=== PATIENT | female | born 1955 | race Hispanic/Latino ===

== ENCOUNTER 2025-03-19 07:50 | Day surgery (SDC) | payer OTHER ==
[2025-03-19] VITALS (14 sets, daily range): BP systolic 76–163; BP diastolic 41–67; PULSE 46–65; RESP 14–18; TEMP 97–97.6
[~2025-03-19] VITALS: Ht 152.4 cm; Wt 59.9 kg
[~2025-03-19 07:50] MED LIST: BISO5TAB19 PO; CHOL100046 PO; CYAN250010 PO; LEVO75CA6 PO; LISI20TA24 PO
[2025-03-19] MEDS: 0.9%NACL 1000ML 1,000 ML IV ONE (08:26)
[2025-03-19] MEDS ORDERED: proPOFol 10 MG/ML 20ML VIAL IV ONE (09:05)
[2025-03-19] MEDS ORDERED: LIDOCAINE PF 100MG/5ML (2%) SYRINGE 5ML ONE (09:05)
[2025-03-19] MEDS: ePHEDrine SULFate 50 MG/ML AMPULE ONE (10:02)
== END 2025-03-19 10:50 | disposition home or self-care (01) ==
LOC: DAH 07:50 → ENDO 07:50
PROVIDERS: ATTEND Internal Medicine Gastroenterology
DX: R94.5 Abnormal results of liver function studies (principal); K73.9 Chronic hepatitis, unspecified; K74.60 Unspecified cirrhosis of liver; K83.8 Other specified diseases of biliary tract; R74.8 Abnormal levels of other serum enzymes; K76.0 Fatty (change of) liver, not elsewhere classified; R93.2 Abnormal findings on diagnostic imaging of liver and biliary tract; R93.422 Abnormal radiologic findings on diagnostic imaging of left kidney; R18.8 Other ascites; I10 Essential (primary) hypertension; E78.5 Hyperlipidemia, unspecified; E07.9 Disorder of thyroid, unspecified; D47.2 Monoclonal gammopathy; R01.1 Cardiac murmur, unspecified; M19.90 Unspecified osteoarthritis, unspecified site; Z79.899 Other long term (current) drug therapy; Z86.0100 Personal history of colon polyps, unspecified; Z90.710 Acquired absence of both cervix and uterus; Z90.49 Acquired absence of other specified parts of digestive tract
CPT/HCPCS: 43238; J2003; J2704; J3490; J7030; A4215; A4620; A4657